=== PATIENT | female | born 1985 | race Caucasian/White ===

== ENCOUNTER 2016-10-05 11:39 | Emergency (ER) | payer BC ==
[~2016-10-05] VITALS: Ht 170.2 cm; Wt 102.1 kg
[~2016-10-05 11:39] MED LIST: ALBUTEROL SULF8.5 GM INH; AMOXICILLIN250 MG PO; ATENOLOL25 MG PO; BENADRYL25 MG PO; CEPHALEXIN500 MG PO; CETIRIZINE HCL10 MG PO; CLINDAMYCIN HC300 MG PO; CLONAZEPAM0.5 MG PO; CYCLOBENZAPRINE10 MG PO; CYMBALTA60 MG PO; DIVALPROEX SOD500 MG PO; DOXYCYCLINE HY100 MG PO; FETZIMA20 MG PO; FETZIMA40 MG PO; FLOVENT DISKUS50 MCG INH; HYDROCHLOROTH12.5 MG PO; HYDROCODON-ACE1 EA11 PO; IBUPROFEN800 MG PO; LACTULOSE10 GM/151 PO; MACROBID 100 M100 MG PO; METHOCARBAMOL500 MG PO; METOCLOPRAMIDE10 MG PO; MOTRIN IB200 MG PO; NORCO 5-325 TA1 EACH PO; OXYBUTYNIN CHLOR5 MG PO; OXYCODONE HCL10 MG PO; OXYCODONE-ACET1 EAC1 PO; PANTOPRAZOLE SO40 MG PO; PENICILLIN V P250 MG PO; PERCOCET 5-3251 EACH PO; PROVENTIL HFA6.7 GM INH; RESTORIL30 MG PO; SEROQUEL200 MG PO; SIMVASTATIN10 MG PO; ZYRTEC10 MG PO
[2016-10-05] MEDS ORDERED: SIMVASTATIN20 MG PO (11:48)
== END 2016-10-05 11:54 | disposition home or self-care (01) ==
LOC: ED 11:39
DX: Z00.8 Encounter for other general examination (principal)

== ENCOUNTER 2017-03-19 09:35 | Day surgery (SDC) | payer BC ==
[~2017-03-19] VITALS: Ht 167.6 cm; Wt 104.3 kg
[~2017-03-19 09:35] MED LIST changes: +SIMVASTATIN20 MG PO; +TENORMIN100 MG PO
--- NOTE | 2017-03-19 11:01 | NUR ---
03/19/17 1101 Cecelia Islas 1055-PATIENT ARRIVED TO PACU ON 10L MASK O2 SAT 100% PATIENT NONAROUSABLE. ORAL AIRWAY IN PLACE MEDHAT PAD IN PLACE WITH MESH UNDERWEAR CDI. SR.
--- NOTE | 2017-03-19 11:56 | NUR ---
LE 1145: PT RETURNS FROM PACU VIA STRETCHER WITH NAYE BAE. UPON ARRIVAL TO THE ROOM AND SEEING PT BECOMES VERY TEARFUL. DENIES PAIN AND NAUSEA AT THIS TIME. ASSESSMENT COMPLETE. WATER AND CRACKERS GIVEN. WARM AIR REQUESTED AND PLACED. NO FURTHER NEEDS AT THIS TIME. AT BEDSIDE COMFORTING PT.
--- NOTE | 2017-03-19 13:49 | NUR ---
LE 1330: PT CALLED UP TO RESTROOM. STEADY ON FEET. VOIDED. DISCUSSED PAIN, PT HAS NAPROXEN AT HOME WHICH SHE BELIEVES WILL BE FINE FOR PAIN MANAGEMENT. PT IS READY TO DC AT TIS TIME. IV REMOVED. PT DRESSED WITH IN ROOM, NO DIFFICULTIES NOTED. DC ORDERS GIVEN, PT AMBULATES TO . NO COMPLAINTES AT DC.
--- NOTE | 2017-03-19 19:42 | OR ---
[facility] [address] [facility] [place], [place] [address] Signed DATE OF OPERATION: 03/19/2017 SURGEON: Nani Barrett MD PREOPERATIVE DIAGNOSIS: A 31-year-old 4, para 2 with missed versus incomplete . POSTOPERATIVE DIAGNOSIS: A 31-year-old 4, para 2 with missed versus incomplete and enlarged uterus with thickened lining. PROCEDURE: Suction dilation and curettage. ANESTHESIA: General endotracheal with pharyngeal mask per Avelino Beavers CRNA. INTRAVENOUS FLUIDS: 1500 mL of lactated Ringer's. URINE OUTPUT: 100 mL per straight cath. ESTIMATED BLOOD LOSS: 50 mL. FINDINGS: Uterus approximately 12 week in size. PATHOLOGY: Products of conception. PROCEDURE TECHNIQUE: The patient was taken back to the operating room with IV fluids hanging. She was placed on the operating table in supine position, underwent general endotracheal anesthesia with rapid sequence intubation and was subsequently re-positioned in dorsal lithotomy position with Jez stirrups. She was then prepped and draped in the normal sterile fashion and a sterile single-sided speculum was placed into the vagina. The cervix was easily visualized. The anterior lip of the cervix was grasped with a single-tooth tenaculum and the single-sided speculum removed. A weighted speculum was then placed Electronically Signed By: NANI BARRETT MD 03/19/171941 PATIENT NAME: OLEKSANDR GRANADOS OPERATIVE REPORT DATE OF : 81 PHYSICIAN: NANI BARRETT MD REPORT #: [id number] REPORT IS CONFIDENTIAL AND NOT TO BE RELEASED WITHOUT AUTHORIZATION [address] [place], [place] [address] Signed into the vagina. The uterus was then sounded to approximately 11 cm and then serially dilated up to a size #10 smooth Akil dilator. A #8 curved suction curette was then used and suction curettage was performed and then sharp curettage thereafter until a good uterine cry was noted. All instruments were then removed from the patient's vagina and cervix. The patient was awakened, extubated, and taken to recovery room in stable condition. Sponge and instrument counts were correct. There were no complications. Nani Barrett MD JKM/MODL /[id number] Electronically Signed By: NANI BARRETT MD 03/19/17 1942 PATIENT NAME: OLEKSANDR GRANADOS OPERATIVE REPORT DATE OF : 81 PHYSICIAN: NANI BARRETT MD REPORT #: [id number] REPORT IS CONFIDENTIAL AND NOT TO BE RELEASED WITHOUT AUTHORIZATION
[2017-06-09] MEDS ORDERED: NAPROXEN500 MG PO (11:20)
[2017-06-09] MEDS ORDERED: DEPAKOTE500 MG PO (11:21)
[2017-06-09] MEDS ORDERED: CIMZIA400 MG/2 M SUB-Q (11:21)
[2017-06-09] MEDS ORDERED: OXYCODONE HCL5 M1 PO (11:26)
[2017-06-09] MEDS ORDERED: PROTONIX40 MG PO (11:27)
[2017-06-09] MEDS ORDERED: SEROQUEL100 MG PO (11:28)
== END 2017-03-19 13:40 | disposition home or self-care (01) ==
LOC: DS 09:35
PROVIDERS: Obstetrics & Gynecology
PROC: 10D17ZZ Extraction of Products of Conception, Retained, Via Natural or Artificial Opening (ICD-10-PCS; principal; 2017-03-19 10:00)
DX: O02.1 Missed abortion (principal); Z79.899 Other long term (current) drug therapy; Z91.041 Radiographic dye allergy status; Z91.040 Latex allergy status; Z88.6 Allergy status to analgesic agent; Z98.890 Other specified postprocedural states; Z87.891 Personal history of nicotine dependence
CPT/HCPCS: 00952; J1100; J1885; J2250; J2270; J2405; J2704; J2765; J3010; J7120

== ENCOUNTER 2017-11-19 15:29 | Emergency (ER) | payer BC ==
[~2017-11-19] VITALS: Ht 167.6 cm; Wt 104.3 kg
[~2017-11-19 15:29] MED LIST changes: +CIMZIA400 MG/2 M SUB-Q; +DEPAKOTE500 MG PO; +NAPROXEN500 MG PO; +OXYCODONE HCL5 M1 PO; +PROTONIX40 MG PO; +SEROQUEL100 MG PO
[2017-11-19] MEDS ORDERED: METOPROLOL SUCC25 MG PO (15:42)
[2017-11-19] MEDS ORDERED: PNV 29-1 TABLE1 EACH PO (15:42)
--- NOTE | 2017-11-19 22:06 | EKG ---
[facility] [address] [facility] [place], [place] [address] Signed Normal sinus rhythm Normal ECG No previous ECGs available Confirmed by KACIE WALKER MD ([id number]) on 11/19/2017 10:05:55 PM Electronically Signed By: KACIE WALKER MD 11/19/176 PATIENT NAME: OLEKSANDR GRANADOS Electrocardiogram DATE OF : 81 PHYSICIAN: KACIE WALKER MD REPORT #: [id number] REPORT IS CONFIDENTIAL AND NOT TO BE RELEASED WITHOUT AUTHORIZATION
== END 2017-11-19 17:43 | disposition home or self-care (01) ==
LOC: ED 15:29
DX: O99.89 Other specified diseases and conditions complicating pregnancy, childbirth and the puerperium (principal); R07.89 Other chest pain; O99.282 Endocrine, nutritional and metabolic diseases complicating pregnancy, second trimester; E83.42 Hypomagnesemia; O10.912 Unspecified pre-existing hypertension complicating pregnancy, second trimester; I10 Essential (primary) hypertension; Z87.891 Personal history of nicotine dependence; Z88.8 Allergy status to other drugs, medicaments and biological substances; Z91.013 Allergy to seafood; Z91.040 Latex allergy status; Z88.6 Allergy status to analgesic agent; Z79.899 Other long term (current) drug therapy
CPT/HCPCS: 80053; 84484; 85025; 93005; 93010; 99285

== ENCOUNTER 2018-04-12 17:05 | Inpatient (IN) | payer BC ==
[~2018-04-12 17:05] MED LIST changes: +METOPROLOL SUCC25 MG PO; +PNV 29-1 TABLE1 EACH PO
--- NOTE | 2018-04-13 11:21 | PR ---
[facility] [address] [facility] [place], [place] [address] Signed Progress Notes IP Datetime Report Generated by CPN: 04/13/2018 11:21 PROGRESS NOTES: [id number] Impression: Normal progression of labor Procedures: Scalp Electrode Plan: Augmentation; Anticipate Vaginal Delivery Other Plans: Low dose Pitocin VITAL SIGNS: [id number] Vital Signs: Reviewed; Within Normal Limits EXAM: [id number] Dilatation: 2.0 Effacement: 50 Station: -3 Uterine Contractions: every 2-3 minutes MEMBRANES: [id number] Membrane Status: Ruptured Amniotic Fluid Color: Clear Comments: Tolerating contractions well, but getting uncomfortable, difficulty picking up FHR on toco, so FEKG applies. Patient would like to try N2O, then later possibly Epidural. Fetus A: [id number] FHR Baseline: 120 Variability: Moderate 6-25bpm Accelerations: 15X15 Presentation: Vertex Fetus B: [id number] Signing Physician: Esther Lazo MD Copies: ~ *Electronically Signed* 04/13/18 1121 ESTHER LAZO MD PATIENT NAME: OLEKSANDR GRANADOS PROGRESS NOTE DATE OF : 81 PHYSICIAN: ESTHER LAZO MD RPT #: [id number] REPORT IS CONFIDENTIAL AND NOT TO BE RELEASED WITHOUT AUTHORIZATION
--- NOTE | 2018-04-13 13:57 | PR ---
[facility] [address] [place], [place] [address] Signed Progress Notes IP Datetime Report Generated by CLIFTON: 04/13/2018 13:57 PROGRESS NOTES: [id number] Impression: Normal progression of labor Procedures: Scalp Electrode Plan: Augmentation; Anticipate Vaginal Delivery Other Plans: Low dose Pitocin VITAL SIGNS: [id number] Vital Signs: Reviewed; Within Normal Limits EXAM: [id number] Dilatation: 2.0 Effacement: 50 Station: -2 Uterine Contractions: every 3-4 minutes MEMBRANES: [id number] Membrane Status: Ruptured Amniotic Fluid Color: Clear Comments: Having frequent deep variable decels, but continued with good variability and accelerations; tried left side, right side, now hands-knees with improvement in FHR tracing. Very uncomfortable with contractions. Pitocin stopped. Anesthesia here for Epidural; will recheck when comfortable and insert IUPC to contineu monitoring. Discussed possibility of C/S. Fetus A: [id number] FHR Baseline: 110 Variability: Moderate 6-25bpm Accelerations: 15X15 Decelerations: Variable Presentation: Vertex Fetus B: [id number] Signing Physician: Wagner Lazo MD Copies: ~ *Electronically Signed* 04/13/18 1353 WAGNER LAZO MD PATIENT NAME: OLEKSANDR GRANADOS PROGRESS NOTE DATE OF : 81 PHYSICIAN: WAGNER LAZO MD RPT #: [id number] REPORT IS CONFIDENTIAL AND NOT TO BE RELEASED WITHOUT AUTHORIZATION
--- NOTE | 2018-04-13 15:14 | PR ---
[facility] [address] [facility] [place], [place] [address] Signed Progress Notes IP Datetime Report Generated by CPN: 04/13/2018 15:14 PROGRESS NOTES: [id number] Impression: Slow Progression of Labor Procedures: Intrauterine Pressure Catheter Plan: Augmentation; Anticipate Vaginal Delivery Other Plans: Restart Pitocin VITAL SIGNS: [id number] Vital Signs: Reviewed; Within Normal Limits EXAM: [id number] Dilatation: 2.0 Effacement: 50 Station: -3 Uterine Contractions: every 3-4 minutes MEMBRANES: [id number] Membrane Status: Ruptured Amniotic Fluid Color: Clear Comments: Comfortable now with Epidural. IUPC inserted, will restart Pitocin to see if fetus will tolerated labor. Fetus A: [id number] FHR Baseline: 115 Variability: Moderate 6-25bpm Accelerations: 15X15 Decelerations: None Presentation: Vertex Fetus B: [id number] Signing Physician: Wagner Lazo MD Copies: ~ *Electronically Signed* 04/13/18 1514 WAGNER LAZO MD PATIENT NAME: NILAPORFIRIOOLEKSANDR ALONZO PROGRESS NOTE DATE OF : 81 PHYSICIAN: WAGNER LAZO MD RPT #: [id number] REPORT IS CONFIDENTIAL AND NOT TO BE RELEASED WITHOUT AUTHORIZATION
--- NOTE | 2018-04-13 15:54 | PR ---
[facility] [address] [place], [place] [address] Signed Progress Notes IP Datetime Report Generated by CPMiki: 04/13/2018 15:54 PROGRESS NOTES: [id number] Impression: Non-reassuring heart rate; Slow Progression of Labor Procedures: Intrauterine Pressure Catheter Plan: Deliver- Section Other Plans: Restart Pitocin Informed Consent Obtain: Section Delivery VITAL SIGNS: [id number] Vital Signs: Reviewed; Within Normal Limits EXAM: [id number] Dilatation: 2.0 Effacement: 50 Station: -3 Uterine Contractions: every 3-4 minutes MEMBRANES: [id number] Membrane Status: Ruptured Amniotic Fluid Color: Clear Comments: Increased variability with deep variable decels with contraction even though contractions only 5-7 minutes apart. Since continued decels and still only 2 cm, recommend C/S. Discussed with patient, discussed procedure, risks, timing, benefits. Patient agrees. Consenet digned. goal umpire to OR for Primary C/S Fetus A: [id number] FHR Baseline: 115 Variability: Marked >25bpm Accelerations: Prolonged Decelerations: Variable Presentation: Vertex Fetus B: [id number] Signing Physician: Wagner Lazo MD Copies: ~ *Electronically Signed* 04/13/18 1554 WAGNER LAZO MD PATIENT NAME: OLEKSANDR GRANADOS PROGRESS NOTE DATE OF : 81 PHYSICIAN: WAGNER LAZO MD RPT #: [id number] REPORT IS CONFIDENTIAL AND NOT TO BE RELEASED WITHOUT AUTHORIZATION
--- NOTE | 2018-04-13 17:11 | NUR ---
04/13/18 1711 Cecelia Islas 1702-PATIENT ARRIVED BACK TO ROOM 101 VIA BED. PATIENT AWAKE DENIES PAIN OR NAUSEA. SPINAL LEVEL AT T10. RA 94-96% RR EVEN. MEDHAT PAD TO MEDHAT AREA. FUNDUS FIRM 1 ABOVE UMBILICUS LIGHT RUBRA DRAINAGE. AT BEDSIDE.
--- NOTE | 2018-04-14 09:01 | PR ---
[facility] [address] [facility] [place], [place] [address] Signed PP Progress Notes Datetime Report Generated by CPN: 04/14/2018 09:01 SUBJECTIVE: [id number] Pain: Within normal limits Nausea/Vomiting: Denies Vital Signs: [id number] Vital Signs: Reviewed; Within Normal Limits Notable Details: PP Hgb/Hct = 11.2/32.9 EXAM: [id number] Abdomen/Uterus: Normal Lochia: Normal Extremities: Normal Incision: Normal Exam Comments: dressing clean and dry IMPRESSION/PLAN/PROCEDURES: [id number] Impression: Normal progression Plan: Continue present management Procedures: None Progress Notes: Doing well, without complaint; plan to increase actitivy, Calvo out and shower today Signing Physician: Esther Lazo MD Copies: ~ *Electronically Signed* 04/14/18900 ESTHER LAZO MD PATIENT NAME: OLEKSANDR GRANADOS PROGRESS NOTE DATE OF : 81 PHYSICIAN: ESTHER LAZO MD RPT #: [id number] REPORT IS CONFIDENTIAL AND NOT TO BE RELEASED WITHOUT AUTHORIZATION
--- NOTE | 2018-04-14 09:03 | OR ---
[facility] [address] [facility] [place], [place] [address] Signed DATE OF OPERATION: 04/13/2018 SURGEON: Wagner Leyva MD Patient of Dr. Leyva. PREOPERATIVE DIAGNOSIS: Nonreassuring heart rate tracing remote from delivery. POSTOPERATIVE DIAGNOSIS: Nonreassuring heart rate tracing remote from delivery. PROCEDURE PERFORMED: Primary low transverse segment section, delivery of live male infant. CODING COMPLIANCE MANAGER: Farhan Coreas DO. ANESTHESIA: Epidural. ESTIMATED BLOOD LOSS: 750 mL. COMPLICATIONS: None. DRAINS: Calvo to bladder. FINDINGS: Live male , Apgars 8 and 9. Weight 6 pounds 12 ounces. There was a tight nuchal cord around the neck once. DESCRIPTION OF PROCEDURE: The patient was brought to the operating room, placed in supine position. After adequate epidural anesthesia was obtained was prepped and draped in usual sterile fashion. A Calvo catheter was already in the bladder. A Pfannenstiel skin incision was made with a scalpel. Subcutaneous tissue was dissected with the scalpel and Bovie. The Electronically Signed By: WAGNER LEYVA MD 04/14/18 0903 PATIENT NAME: OLEKSANDR GRANADOS OPERATIVE REPORT DATE OF : 81 REPORT #: [id number] PHYSICIAN: WAGNER LEYVA MD PCP: FLAKO ALLEN REPORT IS CONFIDENTIAL AND NOT TO BE RELEASED WITHOUT AUTHORIZATION [facility] [address] [place], [place] [address] Signed fascia was nicked with scalpel and extended in transverse fashion using curved scissors. The underlying abdominal musculature was bluntly and sharply from the fascia above and below the incision. The abdominal musculature was bluntly and sharply along the midline. The peritoneum was opened with finger dissection extended in vertical fashion using curved scissors. The Chris self-retaining retractor was inserted into the incision and tightened in place. The lower uterine segment was examined and a small incision made in the lower uterine segment above the bladder using a scalpel. Allis-Winston clamps were used to elevate the incision to open into the cavity and then finger placed in the cavity and the incision extended in a transverse fashion using two fingers. The was noted to be in the vertex MARY presentation. The 's head was easily delivered from the incision. Nuchal cord was around the neck moderately tight. This was removed. The rest of the was then easily delivered from the incision. The cord was doubly clamped and cut. The was passed off table in good condition to awaiting nurse. Cord gases were obtained and the placenta manually removed and the uterine cavity explored with lap pad to remove any retained membranes. An angle stitch of 0 Monocryl was placed at one end of incision and a running locking stitch of 0 Monocryl starting at the other end was used to close the incision. A 2nd running stitch of 0 Monocryl was used to imbricate the first layer. Good hemostasis was noted. The entire pelvis was irrigated, suctioned, examined, noted to have good hemostasis. Both tubes and ovaries were observed and noted to be normal in appearance. The sheet of ACell was placed over the lower uterine segment and then anterior peritoneum closed using running stitch of 2-0 Vicryl suture. The abdominal musculature was reapproximated using interrupted stitches of 0 Vicryl suture. A powdered ACell was sprinkled on the abdominal musculature to help with healing. The fascia was then closed using two running stitches of 0 Vicryl suture meeting in the midline. Subcutaneous tissue was irrigated, suctioned, examined, any bleeding spots cauterized with the Bovie. The remaining powdered ACell sprinkled on subcutaneous tissue, which was then closed using interrupted stitches of 3-0 Vicryl suture. The skin was reapproximated using skin clips. The patient tolerated the procedure well, went to recovery room in good condition. Sponge, needle, and instrument count correct at the end of procedure. Wagner Leyva MD MJB/MODL /[id number] Electronically Signed By: WAGNER LEYVA MD 04/14/18 0903 PATIENT NAME: OLEKSANDR GRANADOS OPERATIVE REPORT DATE OF : 81 REPORT #: [id number] PHYSICIAN: WAGNER LEYVA MD PCP: FLAKO ALLEN REPORT IS CONFIDENTIAL AND NOT TO BE RELEASED WITHOUT AUTHORIZATION [address] [address] Signed Copies: ~ Electronically Signed By: WAGNER LEYVA MD 04/14/18 0903 PATIENT NAME: OLEKSANDR GRANADOS ALONZO OPERATIVE REPORT DATE OF : 81 REPORT #: [id number] PHYSICIAN: WAGNER LEYVA MD PCP: FLAKO ALLEN REPORT IS CONFIDENTIAL AND NOT TO BE RELEASED WITHOUT AUTHORIZATION
--- NOTE | 2018-04-15 11:25 | PR ---
[facility] [address] [facility] [place] [address] Signed PP Progress Notes Datetime Report Generated by CPN: 04/15/2018 11:25 SUBJECTIVE: [id number] Pain: Within normal limits Nausea/Vomiting: Denies Vital Signs: [id number] Vital Signs: Reviewed; Within Normal Limits Notable Details: PP Hgb/Hct = 11.2/32.9 EXAM: [id number] Abdomen/Uterus: Normal Lochia: Normal Extremities: Normal Incision: Normal Exam Comments: dressing clean and dry IMPRESSION/PLAN/PROCEDURES: [id number] Impression: Normal progression Plan: Discharge Procedures: None Progress Notes: Doing well, wants to go home. Signing Physician: Esther Lazo MD Copies: ~ *Electronically Signed* 04/15/18 1125 ESTHER LAZO MD PATIENT NAME: OLEKSANDR GRANADOS PROGRESS NOTE DATE OF : 81 PHYSICIAN: ESTHER LAZO MD RPT #: [id number] REPORT IS CONFIDENTIAL AND NOT TO BE RELEASED WITHOUT AUTHORIZATION
== END 2018-04-15 16:36 | disposition home or self-care (01) | DRG 788 ==
LOC: FBCO 17:05 → FBC 18:15 → FBCO 04-30 18:35
PROVIDERS: ADMIT General Practice
PROC: 10H07YZ Insertion of Other Device into Products of Conception, Via Natural or Artificial Opening (ICD-10-PCS; 2018-04-13)
PROC: 00HU33Z Insertion of Infusion Device into Spinal Canal, Percutaneous Approach (ICD-10-PCS; 2018-04-13)
PROC: 3E0R3BZ Introduction of Anesthetic Agent into Spinal Canal, Percutaneous Approach (ICD-10-PCS; 2018-04-13)
PROC: 10D00Z1 Extraction of Products of Conception, Low, Open Approach (ICD-10-PCS; principal; 2018-04-13 16:13)
DX: O76 Abnormality in fetal heart rate and rhythm complicating labor and delivery (principal); O69.1XX0 Labor and delivery complicated by cord around neck, with compression, not applicable or unspecified; O42.92 Full-term premature rupture of membranes, unspecified as to length of time between rupture and onset of labor; Z3A.37 37 weeks gestation of pregnancy; Z37.0 Single live birth; O99.89 Other specified diseases and conditions complicating pregnancy, childbirth and the puerperium; R00.0 Tachycardia, unspecified; O99.52 Diseases of the respiratory system complicating childbirth; J45.909 Unspecified asthma, uncomplicated; O36.63X0 Maternal care for excessive fetal growth, third trimester, not applicable or unspecified; Z88.5 Allergy status to narcotic agent; Z88.8 Allergy status to other drugs, medicaments and biological substances; Z79.899 Other long term (current) drug therapy; Z87.891 Personal history of nicotine dependence; Z86.59 Personal history of other mental and behavioral disorders; Z91.040 Latex allergy status
CPT/HCPCS: 01960; 01961; 36415; 59025; 82803; 84112; 85027; 99214; C1763; J0690; J1644; J2250; J2274; J2300; J2405; J2590; J3010; J7120

== ENCOUNTER 2018-04-20 18:45 | Emergency (ER) | payer BC ==
[~2018-04-20] VITALS: Ht 167.6 cm; Wt 104.3 kg
--- OUTSIDE RECORDS SUMMARY | 2018-04-20 18:48 | XMS ---
PreManage Notification: OLEKSANDR GRANADOS Security Sales Specialist Events No recent Security Events currently on file CRITERIA MET - Group Notification - [facility] CARE PROVIDERS LANRE WEN Nurse Practitioner Cruz LAGOS PHONE: [phone] FLAKO ALLEN Nurse Practitioner: Family Current PHONE: Unknown BEE BARRETT Obstetrics \T\ Gynecology Cruz So PHONE: Unknown Cecelia Chen Primary Care Current PHONE: Unknown Melanie has no Care Guidelines for this patient. Care History Medical/Surgical 11/22/2017 [facility] - Patient is currently established with [facility]. If patient is seen in the ED during business hours. Please contact CHWs at [facility]. Care Recommendation: This patient has had 5 or more Emergency Department visits in the last 12 months.\T\nbsp; Patient requires education on the scope and purpose of the ED as an acute care provider not a Primary Care Provider and should not be utilized for chronic conditions.\T\nbsp; These are guidelines and the provider should exercise clinical judgment when providing care. E.D. VISIT COUNT (12 MO.) 2 [facility]. TOTAL 2 NOTE: Visits indicate total known visits. ED/UCC VISIT TRACKING (12 MO.) 04/20/2018 18:45 [facility] [place] TYPE: Emergency COMPLAINT: - POST OP PROBLEM 11/19/2017 15:29 [facility] [place] TYPE: Emergency COMPLAINT: - CHEST PAIN DIAGNOSES: - Unspecified pre-existing hypertension complicating , second trimester - Allergy status to analgesic agent status - Other termite inspector (current) drug therapy - Essential (primary) hypertension - Latex allergy status - Allergy to seafood - Other chest pain - Hypomagnesemia - Endocrine, nutritional and metabolic diseases complicating , second trimester - Personal history of nicotine dependence - Allergy status to other drugs, medicaments and biological substances status - Other specified diseases and conditions complicating , childbirth and the puerperium INPATIENT VISIT TRACKING (12 MO.) 04/12/2018 18:15 [facility] [place] [facility] COMPLAINT: - LABOR DIAGNOSES: - Maternal care for excessive growth, third trimester, not applicable or unspecified - Personal history of nicotine dependence - Labor and delivery complicated by cord around neck, with compression, not applicable or unspecified - Diseases of the respiratory system complicating childbirth - Latex allergy status - Abnormality in heart rate and rhythm complicating labor and delivery - Tachycardia, unspecified - Allergy status to narcotic agent status - Unspecified asthma, uncomplicated - Allergy status to other drugs, medicaments and biological substances status - Other mcc (current) drug therapy - Personal history of other mental and behavioral disorders - 37 weeks gestation of - Other specified diseases and conditions complicating , childbirth and the puerperium - Abnormality in heart rate and rhythm complicating labor and delivery - Full-term premature rupture of membranes, unspecified as to length of time between rupture and onset of labor - Single live - Full-term premature rupture of membranes, unspecified as to length of time between rupture and onset of labor - Labor and delivery complicated by cord around neck, with compression, not applicable or unspecified [email or web address]
[2018-04-20] MEDS ORDERED: PERCOCET 5-3251 EACH PO (19:03)
[2018-04-20] MEDS ORDERED: CEPHALEXIN500 MG PO (20:13)
== END 2018-04-20 20:33 | disposition home or self-care (01) ==
LOC: ED 18:45
DX: O86.00 Infection of obstetric surgical wound, unspecified (principal); J44.9 Chronic obstructive pulmonary disease, unspecified; F31.9 Bipolar disorder, unspecified; F43.10 Post-traumatic stress disorder, unspecified; E78.5 Hyperlipidemia, unspecified; I10 Essential (primary) hypertension; Z87.891 Personal history of nicotine dependence; Z88.8 Allergy status to other drugs, medicaments and biological substances; Z91.013 Allergy to seafood; Z91.040 Latex allergy status; Z79.899 Other long term (current) drug therapy
CPT/HCPCS: 99282

== ENCOUNTER 2019-12-20 14:58 | Emergency (ER) | payer BC, OTHER ==
[~2019-12-20] VITALS: Ht 167.6 cm; Wt 111.0 kg
--- OUTSIDE RECORDS SUMMARY | 2019-12-20 15:00 | XMS ---
PreManage Notification: OLEKSANDR GRANADOS Security [employer] Tech Events No recent Security Events currently on file CRITERIA MET - Group Notification CARE PROVIDERS FLAKO ALLEN Nurse Practitioner: Family Current PHONE: [phone] Melanie has no Care Guidelines for this patient. Care History Medical/Surgical 11/22/2017 [facility] - Patient is currently established with [facility]. If patient is seen in the ED during business hours. Please contact CHWs at [facility]. Care Recommendation: This patient has had 5 [...] providing care. E.D. VISIT COUNT (12 MO.) 1 [facility] TOTAL 1 NOTE: Visits indicate total known visits. ED/UCC VISIT TRACKING (12 MO.) 12/20/2019 14:[address] [facility] [place] TYPE: Emergency COMPLAINT: - L SIDE RIB/ABD PAIN SWELLING INPATIENT VISIT TRACKING (12 MO.) No inpatient visits to display in this time frame [email or web address]
[2019-12-20] MEDS ORDERED: CYCLOBENZAPRINE5 MG PO (17:12)
== END 2019-12-20 17:23 | disposition home or self-care (01) ==
LOC: ED 14:58
DX: R10.9 Unspecified abdominal pain (principal); J44.9 Chronic obstructive pulmonary disease, unspecified; F31.9 Bipolar disorder, unspecified; F41.9 Anxiety disorder, unspecified; F43.10 Post-traumatic stress disorder, unspecified; E78.5 Hyperlipidemia, unspecified; I10 Essential (primary) hypertension; Z88.8 Allergy status to other drugs, medicaments and biological substances; Z91.013 Allergy to seafood; Z91.040 Latex allergy status; Z79.899 Other long term (current) drug therapy
CPT/HCPCS: 74176; 80053; 81001; 83690; 84703; 85025; 87088; 96374; 96375; 99284-25; J2270; J2405